=== PATIENT | male | born 1995 | race Hispanic/Latino ===

== ENCOUNTER 2021-04-15 02:05 | Emergency (ER) | payer OTHER ==
[~2021-04-15] VITALS: Ht 167.6 cm; Wt 92.9 kg
--- NOTE | 2021-04-15 03:24 | REPVR ---
PROCEDURE INFORMATION: Exam: US Scrotum and US Duplex Artery and Vein, Scrotum, Complete Exam date and time: 04/15/2021 2:43 AM Age: 25 years old Clinical indication: Scrotum pain; Additional info: Left testicle pain TECHNIQUE: Imaging protocol: Real-time ultrasound of the scrotum. Real-time duplex ultrasound scan of the arterial and venous flow of the scrotum with B-mode, color Doppler flow and spectral waveform analysis. Complete exam. Duplex images required to evaluate vascular conditions. COMPARISON: No relevant prior studies available. FINDINGS: Right testicle: Extensive microlithiasis. No mass. No torsion. Normal Duplex waveforms and color doppler. Left testicle: Extensive microlithiasis. 3 mm cyst in the left testicle. No mass. No torsion. Normal Duplex waveforms and color doppler. Epididymides: 1.3 cm left epididymal head cyst containing internal low-level echoes. Scrotum: Normal. IMPRESSION: No evidence testicular torsion. Bilateral microlithiasis. 1.3 cm left epididymal head cyst containing internal low-level echoes. Electronically signed by: López Cortez On 04/15/2021 03:23:40 AM
[2021-04-15 08:13] LABS: BASO % 0.2 % (0.0-1.0); EOS # 0.1 10^3/uL (0.0-0.5); EOS % 1.1 % (0.0-3.0); HEMATOCRIT 45.8 % (42.0-52.0); HEMOGLOBIN 15.4 g/dl (13.5-17.5); LYMPH # 2.8 10^3/uL (1.5-5.0); LYMPH % 34.8 % (24.0-44.0); MEAN CORPUSCULAR HEMOGLOBIN 28.2 pg (27.0-33.0); MEAN CORPUSCULAR HGB CONC 33.6 g/dl (32.0-36.5); MEAN CORPUSCULAR VOLUME 83.9 fl (80.0-96.0); MONO # 0.5 10^3/uL (0.0-0.8); MONO % 6.4 % (2.0-8.0); NEUTROPHILS # 4.7 10^3/uL (1.5-8.5); NEUTROPHILS % 57.4 % (36.0-66.0); PLATELET COUNT, AUTOMATED 268 10^3/uL (150-450); RED BLOOD COUNT 5.46 10^6/uL (4.30-6.10); WHITE BLOOD COUNT 8.2 10^3/uL (4.0-10.0)
[2021-04-15 08:28] LABS: ALBUMIN 4.1 GM/DL (3.2-5.2); ALT/SGPT 33 U/L (12-78); BILIRUBIN,DIRECT 0.2 MG/DL (0.0-0.2); BILIRUBIN,TOTAL 0.8 MG/DL (0.2-1.0); BLOOD UREA NITROGEN 16 MG/DL (7-18); CARBON DIOXIDE LEVEL 25 MEQ/L (21-32); CHLORIDE LEVEL 110 MEQ/L (98-107); CREATININE FOR GFR 0.93 MG/DL (0.70-1.30); GLOMERULAR FILTRATION RATE > 60.0 (>60); GLUCOSE, FASTING 98 MG/DL (70-100); POTASSIUM SERUM 4.1 MEQ/L (3.5-5.1); SODIUM LEVEL 139 MEQ/L (136-145); TOTAL PROTEIN 7.6 GM/DL (6.4-8.2)
[2021-04-15 08:52] LABS: ERYTHROCYTE SEDIMENTATION RATE 2 mm/hr (0-15)
[2021-04-15 10:31] LABS: GC DNA AMPLIFICATION NEGATIVE (NEGATIVE)
[2021-04-15 10:55] VITALS: BP 133/87
--- NOTE | 2021-04-19 14:52 | ED PDOC ---
Post-Departure Follow-Up radiology report faxed to [facility] Minerva Perez MD Apr 19, 2021 14:52
== END 2021-04-15 10:58 | disposition home or self-care (01) ==
LOC: M ED 02:05
DX: N50.89 Other specified disorders of the male genital organs (principal); N50.3 Cyst of epididymis; G51.0 Bell's palsy; F17.200 Nicotine dependence, unspecified, uncomplicated

== ENCOUNTER → 2021-05-17 | Outpatient (CLI) | payer OTHER | LOC: M LAB 11:48 | PROVIDERS: ATTEND Urology | DX: N50.812 Left testicular pain (principal) ==